=== PATIENT | female | born 1975 | race Caucasian/White ===

== ENCOUNTER 2021-11-01 14:11 | Outpatient (CLI) | payer BC, SELFPAY ==
--- NOTE | 2021-11-01 14:00 | CRLHL7_ITS ---
For Patients: As a result of the Cures Act, medical imaging exams and procedure reports are released immediately into your electronic medical record. You may view this report before your referring provider. If you have questions, please contact your health care provider. BILATERAL SCREENING MAMMOGRAM WITH COMPUTER-AIDED DETECTION AND TOMOSYNTHESIS, 11/01/2021 TECHNIQUE: CC and MLO views were obtained. These mammographic images have been obtained using full-field digital technique. These mammographic images were interpreted with the benefit of computer-aided detection. Breast tomosynthesis was used in this interpretation. COMPARISON FILM: 05/08/20, 04/12/19, 12/17/17. FINDINGS: The breasts are heterogeneously dense, which may obscure small masses. IMPRESSION: There is no radiographic evidence for malignancy. ASSESSMENT: BI-RADS Category 1: Negative RECOMMENDATION: Routine screening mammogram in 1 year. A lay language report of this examination will be provided to the patient. ZACK RIVERA M.D. Diagnostic Radiologist [email or web address] Transcribed: 5:[address]/Dictated by: Zack Rivera MD @ 11/04/2021 8:40:00 AM (Electronically Signed)
== END 2021-11-01 14:12 | disposition home or self-care (01) ==
LOC: MAMMO 14:13
PROVIDERS: PCP Family Medicine; Visit Provider Family Medicine
DX: Z12.31 Encounter for screening mammogram for malignant neoplasm of breast (principal); R92.2 Inconclusive mammogram
CPT/HCPCS: 77063; 77067

== ENCOUNTER 2022-11-12 07:30 | Outpatient (CLI) | payer BC, SELFPAY | END 2022-11-12 07:31 | disposition home or self-care (01) | LOC: NFLDREF 14:42 | PROVIDERS: PCP Family Medicine; Referring Provider Family Medicine; Visit Provider Family Medicine | DX: Z01.419 Encounter for gynecological examination (general) (routine) without abnormal findings (principal); N92.0 Excessive and frequent menstruation with regular cycle; Z13.1 Encounter for screening for diabetes mellitus; Z13.9 Encounter for screening, unspecified | CPT/HCPCS: 80053; 80061 ==

== ENCOUNTER 2023-12-01 09:46 | Outpatient (CLI) | payer BC, SELFPAY ==
--- NOTE | 2023-12-01 10:15 | CRLHL7_ITS ---
For Patients: As a result of the Century Cures Act, medical imaging exams and procedure reports are released immediately into your electronic medical record. You may view this report before your referring provider. If you have questions, please contact your health care provider. BILATERAL DIGITAL SCREENING MAMMOGRAM WITH COMPUTER-AIDED DETECTION AND TOMOSYNTHESIS CLINICAL HISTORY: Routine screening exam. COMPARISON: 11/01/21, 05/08/30, 04/12/19, 01/01/2018, 12/17/2017. TECHNIQUE: Digital mammogram in CC and MLO projections including computer-aided detection (CAD). Tomosynthesis was used in this interpretation. BREAST COMPOSITION: The breasts are extremely dense, which lowers the sensitivity of mammography. FINDINGS: RIGHT Breast: Nodular density within the subareolar RIGHT breast in a different location compared to 2018. No architectural distortion. LEFT Breast: No suspicious findings. IMPRESSION: RIGHT breast asymmetry/mass. RECOMMENDATIONS: RIGHT breast ultrasound recommended. BI-RADS Category 0: Incomplete: Need Additional Imaging Evaluation [facility] will contact the patient for follow-up. A lay language report of this examination will be provided to the patient. Dictated by Zack Paredes MD @ 12/01/2023 12:43:14 PM roya/Dictated by: Zack Paredes MD @ 12/01/2023 12:43:00 PM (Electronically Signed)
== END 2023-12-01 09:47 | disposition home or self-care (01) ==
LOC: MAMMO 09:49
PROVIDERS: PCP Nurse Practitioner; Visit Provider Family Medicine
DX: Z12.31 Encounter for screening mammogram for malignant neoplasm of breast (principal); N63.10 Unspecified lump in the right breast, unspecified quadrant; R92.333 Mammographic heterogeneous density, bilateral breasts
CPT/HCPCS: 77063; 77067

== ENCOUNTER 2023-12-08 09:47 | Outpatient (CLI) | payer BC, SELFPAY ==
--- OUTSIDE RECORDS SUMMARY | 2023-12-08 09:50 | XMS_ITS | Clinical Summary ---
Author Organization [employer] [facility] Address [place], [place] [address] Care Team Providers Care Civil Service Clerk Name Role Phone Rosio Chao MD Primary Care Provider + Allergies Active Allergy Reactions Criticality Noted Date Comments Cephalexin GI Upset High 12/18/2020 Sulfa (Sulfonamide Antibiotics) Hives 03/12 Medications Medication Sig Dispensed Refills Start Date End Date Status pindoloL (VISKEN) 5 mg tablet Take 2.5 mg by mouth 2 times daily. 04/05/2020 Active Family History Medical History Relation Name Comments Skin cancer Father Relation Name Status Comments Father Alive Mother Alive Social History Tobacco Use Types Packs/Day Years Used Date Smoking Tobacco: Never Smokeless Tobacco: Never Tobacco Cessation:Counseling Given: Yes Sex and Gender Information Value Date Recorded Sex Assigned at Not on file Gender Identity Not on file Sexual Orientation Not on file Obstetrics History Last Filed Vital Signs Vital Sign Reading Time Taken Comments Blood Pressure 121/82 01/23/2021 9:28 AM BOW MACHINE OPERATOR tow er Pulse 82 01/23/2021 9:28 AM BOW MACHINE OPERATOR Temperature - - Respiratory Rate - - Oxygen Saturation 96% 01/23/2021 9:28 AM BOW MACHINE OPERATOR Inhaled Oxygen Concentration - - Weight 60.3 kg (133 lb) 01/23/2021 9:28 AM BOW MACHINE OPERATOR Height - - Body Mass Index - - Plan of Treatment Health Maintenance Due Date Last Done Comments Tdap 1984 Depression screening for age 12+ 1985 HIV for age 15-65 1988 BMI (ht and wt on same day) for age 18+ 05/19/1991 Hepatitis C screening for ag e 18-79 05/19/1991 Tetanus booster 1993 Colonoscopy through age 75 2018 Lipids for age 45-75 2018 Mammogram for age 45-75 2018 Pap test for age 21-65 11/25/2020 8, 11/25/2017 Zoster (shingles) series for age 50+ (1 of 2) 05/19/2023 COVID-19 vaccine series ( season) 2023 01/11/2021, 06/15/2020, 05/25/2020 Influenza for age 50-64 10/11/2023 Pneumococcal series for age 6-64 Aged Out No longer eligible b ased on patient's age to complete this topic Procedures Procedure Name Priority Date/Time Associated Diagnosis Comments SERVICE DELIVERY MANAGER THIN PREP PAP SCREEN IMAGED Routine 11/25/2017 8:15 AM CDT from Last 3 Months or Most Recently Relevant to Health Maintenance Results * SERVICE DELIVERY MANAGER THIN PREP PAP SCREEN IMAGED (11/25/2017 8:15 AM CDT) Case Report Gynecologic Cytology Report ? Case: [id number] ? Authorizing Provider: ??Brittany Pryor ?Collected: ? 11/25/2017 0815 ? First Screen: ?Alida Servin ?Received: ?11/26/2017 1247 ? Rescreen: ?Gosia José ? Specimen: ?SERVICE DELIVERY MANAGER ThinPrep Vial Screening, Cervical/Vaginal ? 12/05/2017 1:29 PM CDT [facility] INTERPRETATION/ RESULT NEGATIVE FOR INTRAEPITHELIAL LESION OR MALIGNANCY (NIL) (none) 12/05/2017 1:29 PM CDT [facility] IMEN ADEQUACY Satisfactory for evaluation Endocervical component present 12/05/2017 1:29 PM CDT [facility] HPV REQUEST HPV and PAP 12/05/2017 1:29 PM [facility] Date of LMP 11/18/2017 12/05/2017 1:29 PM CDT [facility] Last Pap Date 03/22/2009 12/05/2017 1:29 PM CDT [facility] Last Pap Result NIL 8 1:29 PM [facility] Automated Review Successful 12/05/2017 1:29 PM [facility] Comment:Specimen processed s uccessfully by automated lead project manager device, ThinPrep Imaging System, [employer] ANCILLARY TESTING SERVICE DELIVERY MANAGER HPV Ordered, Please see separate report 12/05/2017 1:29 PM T [facility] Note The pap test is a screening technique, not a diagnostic procedure. ??It is used primarily to screen for squamous cancers and precursor lesions. ??Published studies have shown that it is subject to both false negative and false positive results. ??The pap test should not be used as the sole means to diagnose or exclude pre-malignant and malignant lesions. Cytology is screened and interpreted at [facility] - [address], [place] [address] and [facility] - [address]; [place] [address] and [facility] - [address]; [place] [address] and [facility] [address]; [place] [address] 12/05/2017 1:29 PM CDT [facility]-C ENTRAL LABORATORY Other (Cervical/Vagina l) 11/25/2017 8:15 AM CDT 11/26/2017 12:47 PM CDT Brittany Pryor PATHOLOGY/CYTOLOGY [facility] LABORAT[facility]-CENTRAL LABORATORY [address] [place] [address], from Last 3 Months or Most Recently Relevant to Health Maintenance Care Teams Civil Service Clerk Relationship Specialty Start Date End Date Rosio Chao MD [address] [place], [place] [id number] PCP - General Family Practice 01/23/21
--- NOTE | 2023-12-08 10:00 | CRLHL7_ITS ---
For Patients: As a result of the Cures Act, medical imaging exams and procedure reports are released immediately into your electronic medical record. You may view this report before your referring provider. If you have questions, please contact your health care provider. RIGHT BREAST ULTRASOUND CLINICAL HISTORY: RIGHT breast mass/asymmetry. COMPARISON: 12/01/2023. TECHNIQUE: Real-time ultrasound imaging of RIGHT breast with imaging documentation. FINDINGS: Targeted ultrasound RIGHT breast 12 o`clock 1 cm from the nipple performed. In this location, there is a simple circumscribed anechoic cyst measuring 2.8 x 1.1 x 3.0 cm. Increased through-transmission is present. No solid component. No internal vascularity. IMPRESSION: Benign simple cyst RIGHT breast 12 o`clock 1 cm from the nipple measuring 2.8 x 1.1 x 3.0 cm. No suspicious findings. RECOMMENDATIONS: Annual BILATERAL screening mammography. Results and recommendations were discussed with the patient at the time of the exam. BI-RADS Category 2: Benign Dictated by Zack Paredes MD @ 12/08/2023 10:32:05 AM jj/Dictated by: Zack Paredes MD @ 12/08/2023 10:32:00 AM (Electronically Signed)
== END 2023-12-08 09:48 | disposition home or self-care (01) ==
LOC: US 09:49
PROVIDERS: PCP Nurse Practitioner; Visit Provider Family Medicine
DX: N63.10 Unspecified lump in the right breast, unspecified quadrant (principal); N60.01 Solitary cyst of right breast; R92.8 Other abnormal and inconclusive findings on diagnostic imaging of breast
CPT/HCPCS: 76642

== ENCOUNTER 2024-01-04 17:12 | Outpatient (CLI) | payer BC, SELFPAY ==
--- OUTSIDE RECORDS SUMMARY | 2024-01-04 17:15 | XMS_ITS | Clinical Summary ---
Author Organization [employer] [facility] Address [place], [place] [address] Care Team Providers Care Groutman Name Role Phone Rosio Chao MD Primary [...] Comments Blood Pressure 121/82 01/23/2021 9:28 AM PHARMACY TECHNICIAN ASSISTANT tow er Pulse 82 01/23/2021 9:28 AM PHARMACY TECHNICIAN ASSISTANT Temperature - - Respiratory Rate - - Oxygen Saturation 96% 01/23/2021 9:28 AM PHARMACY TECHNICIAN ASSISTANT Inhaled Oxygen Concentration - - Weight 60.3 kg (133 lb) 01/23/2021 9:28 AM PHARMACY TECHNICIAN ASSISTANT Height - - Body Mass Index - [...] (1 of 2) 05/19/2023 COVID-19 vaccine series (2023- season) 2023 01/11/2021, 06/15/2020, 05/25/2020 Influenza for age 50-64 10/11/2023 Pneumococcal series for age 6-64 Aged Out No longer eligible b ased on patient's age to complete this topic Procedures Procedure Name Priority Date/Time Associated Diagnosis Comments FIREBRICK LAYER HELPER THIN PREP PAP SCREEN IMAGED Routine 11/25/2017 8:15 AM CDT from Last 3 Months or Most Recently Relevant to Health Maintenance Results * FIREBRICK LAYER HELPER THIN PREP PAP SCREEN IMAGED (11/25/2017 8:15 AM CDT) Case Report Gynecologic Cytology Report Case: [id number] Authorizing Provider: Brittany Pryor Collected: 11/25/2017 0815 First Screen: Alida Servin Received: 11/26/2017 1247 Rescreen: Gosia José Specimen: FIREBRICK LAYER HELPER ThinPrep Vial Screening, Cervical/Vaginal 12/05/2017 1:29 PM CDT [facility] ENTRAL [facility]AT[facility] INTERPRETATION/ RESULT NEGATIVE FOR INTRAEPITHELIAL LESION OR MALIGNANCY (NIL) (none) 12/05/2017 1:29 PM CDT [facility] ENTRAL LAB[facility]AT[facility] IMEN ADEQUACY Satisfactory for evaluation Endocervical component present 12/05/2017 1:29 PM CDT [facility] HPV REQUEST HPV and PAP 12/05/2017 1:29 PM CDT [facility] Date of LMP 11/18/2017 12/05/2017 1:29 PM CDT [facility] Last Pap Date 03/22/2009 12/05/2017 1:29 PM CDT [facility] Last Pap Result NIL 8 1:29 PM CDT [facility] Automated Review Successful 12/05/2017 1:29 PM CDT [facility] Comment:Specimen processed s uccessfully by automated housefellow device, Bloom CapitalPrep Imaging System, [employer] ANCILLARY TESTING FIREBRICK LAYER HELPER HPV Ordered, Please see separate report 12/05/2017 1:29 PM CDT [facility] Note The pap test is a screening technique, not a diagnostic procedure. It is used primarily to screen for squamous cancers and precursor lesions. Published studies have shown that it is subject to both false negative and false positive results. The pap test should not be used as the sole means to diagnose or exclude pre-malignant and malignant lesions. Cytology is screened and interpreted at [facility] - [address], [place] [address] and [facility] - [address]; [place] [address] and [facility] - [address]; [place] [address] and [facility] [address]; [place] [address] 12/05/2017 1:29 PM CDT [facility] Other (Cervical/Vagina l) 11/25/2017 8:15 AM CDT 11/26/2017 12:47 PM CDT Brittany Pryor PATHOLOGY/CYTOLOGY [facility] [address] [place] [address], [place] from Last 3 Months or Most Recently Relevant to Health Maintenance Care Teams Groutman Relationship Specialty Start Date End Date Rosio Chao MD [address] [place] [address] PCP - General Family Practice 01/23/21
[2024-01-06 17:03] LABS: HPV Source Cervix; HPV, High Risk by TMA Not Detected
== END 2024-01-04 17:13 | disposition home or self-care (01) ==
PROVIDERS: PCP Nurse Practitioner; Visit Provider Physician Assistant Medical
DX: N92.0 Excessive and frequent menstruation with regular cycle (principal); F41.9 Anxiety disorder, unspecified; K58.9 Irritable bowel syndrome, unspecified; Z13.0 Encounter for screening for diseases of the blood and blood-forming organs and certain disorders involving the immune mechanism; Z13.6 Encounter for screening for cardiovascular disorders; Z13.1 Encounter for screening for diabetes mellitus
CPT/HCPCS: 80048; 80061; 82728; 87624; 87625; 88141; 88142

== ENCOUNTER 2024-01-15 15:37 | Outpatient (CLI) | payer BC, SELFPAY ==
--- OUTSIDE RECORDS SUMMARY | 2024-01-15 15:42 | XMS_ITS | Clinical Summary ---
Author Organization [employer] [facility] Address [place], [place] [address] Care Team Providers Care Share Holder Name Role Phone Rosio Chao MD Primary [...] Comments Blood Pressure 121/82 01/23/2021 9:28 AM GUIDE SETTER tow er Pulse 82 01/23/2021 9:28 AM GUIDE SETTER Temperature - - Respiratory Rate - - Oxygen Saturation 96% 01/23/2021 9:28 AM GUIDE SETTER Inhaled Oxygen Concentration - - Weight 60.3 kg (133 lb) 01/23/2021 9:28 AM GUIDE SETTER Height - - Body Mass Index - [...] Procedure Name Priority Date/Time Associated Diagnosis Comments EXTRACTION OPERATOR THIN PREP PAP SCREEN IMAGED Routine 11/25/2017 8:15 AM CDT from Last 3 Months or Most Recently Relevant to Health Maintenance Results * EXTRACTION OPERATOR THIN PREP PAP SCREEN IMAGED (11/25/2017 8:15 AM CDT) Case Report Gynecologic Cytology Report Case: [id number] Authorizing Provider: Brittany Pryor Collected: 11/25/2017 0815 First Screen: Alida Servin Received: 11/26/2017 1247 Rescreen: Gosia José Specimen: EXTRACTION OPERATOR ThinPrep Vial Screening, Cervical/Vaginal 12/05/2017 1:29 PM CDT [facility]-C ENTRAL LABORATORY INTERPRETATION/ RESULT NEGATIVE FOR INTRAEPITHELIAL LESION OR MALIGNANCY (NIL) (none) 12/05/2017 1:29 PM CDT [facility] ENTRAL LABORATORY IMEN ADEQUACY Satisfactory for evaluation Endocervical component present 12/05/2017 1:29 PM CDT [facility] HPV REQUEST HPV and PAP 12/05/2017 1:29 PM CDT [facility] Date of LMP 11/18/2017 12/05/2017 1:29 PM CDT [facility] Last Pap Date 03/22/2009 12/05/2017 1:29 PM CDT [facility] Last Pap Result NIL 8 1:29 PM CDT [facility] EN[facility] LAB[facility]AT[facility] Automated Review Successful 12/05/2017 1:29 PM CDT [facility] Comment:Specimen processed s uccessfully by automated vinyl installer device, Meal SharingPrep Imaging System, [facility] ANCILLARY TESTING EXTRACTION OPERATOR HPV Ordered, Please see separate report 12/05/2017 1:29 PM CDT [facility] Note The pap test is a [...] lesions. Cytology is screened and interpreted at [facility] - [address], [place] [address] and [facility] - [address]; [place] [address] [address] [facility] - [address]; [place] [address] and [facility] [address]; [place] [address] 12/05/2017 1:29 PM CDT [facility] Other (Cervical/Vagina l) 11/25/2017 8:15 AM CDT 11/26/2017 12:47 PM CDT Brittany Pryor PATHOLOGY/CYTOLOGY [facility] [address] [place] [address], [place] from Last 3 Months or Most Recently Relevant to Health Maintenance Care Teams Share Holder Relationship Specialty Start Date End Date Rosio Chao MD [address] [place] [address] PCP - General Family Practice 01/23/21
--- NOTE | 2024-01-15 15:45 | CRLHL7_ITS ---
For Patients: As a result of the Century Cures Act, medical imaging exams and procedure reports are released immediately into your electronic medical record. You may view this report before your referring provider. If you have questions, please contact your health care provider. INDICATION: Irregular menstruation COMPARISON: none TECHNIQUE: 2D pickering scale and color Doppler images were acquired of the pelvis using a transabdominal and transvaginal approach. FINDINGS: Sonographic images demonstrate a normal size and smooth outer contour of the uterus. Uterus measures 7.6 cm in length by 5.1 cm in AP diameter by 5.8 cm in transverse dimension. Intramural fibroid is present on the left measuring 1.2 x 0.7 x 1.1 cm. Right fundal intramural fibroid measures 1.2 x 0.7 x 1.2 cm. Additional subserosal left-sided fibroid measures 1.7 x 1.1 x 1.3 cm. The endometrial lining measures 7 mm in composite thickness. The right ovary measures 2.3 x 1.3 x 1.6 cm in size and the left ovary measures 5.1 x 3.3 x 3.6 cm. The ovaries demonstrate normal arterial and venous blood flow on color Doppler analysis. There are no suspicious fluid collections within the cul-de-sac. Simple left ovarian cyst is present measuring 3.5 x 3.0 x 3.4 cm. IMPRESSION: Endometrial thickness 7 millimeters. Small fibroids measure up to 1.7 cm. Simple left ovarian cyst measures 3.5 cm. Dictated by Zack Paredes MD @ 01/17/2024 6:18:33 PM (Electronically Signed)
== END 2024-01-15 15:38 | disposition home or self-care (01) ==
LOC: US 15:39
PROVIDERS: PCP Nurse Practitioner; Visit Provider Physician Assistant Medical
DX: N92.6 Irregular menstruation, unspecified (principal); R93.89 Abnormal findings on diagnostic imaging of other specified body structures; N83.202 Unspecified ovarian cyst, left side; N95.0 Postmenopausal bleeding
CPT/HCPCS: 76830; 76856

== ENCOUNTER 2024-02-08 07:24 | Outpatient (CLI) | payer BC, SELFPAY ==
--- NOTE | 2024-02-08 08:18 | W.ANESCHARGE ---
Anesthesia Charges Start Date/Time Anesthesia Start Date: 02/08/24 Anesthesia Start Time: 07:54 Stop Date/Time Anesthesia Stop Date: 02/08/24 Anesthesia Stop Time: 08:16
== END 2024-02-08 07:25 | disposition home or self-care (01) ==
LOC: OP CLINIC 07:24
PROVIDERS: PCP Physician Assistant Medical; Visit Provider Internal Medicine
DX: Z12.11 Encounter for screening for malignant neoplasm of colon (principal); K57.30 Diverticulosis of large intestine without perforation or abscess without bleeding; Z86.0100 Personal history of colon polyps, unspecified
CPT/HCPCS: 00812; 45378; J2704